=== PATIENT | female | born 1995 | race Two or more races ===

== ENCOUNTER 2022-03-03 10:06 | Outpatient (CLI) | payer OTHER | END 2022-03-03 11:20 | disposition home or self-care (01) | LOC: PRENATAL 10:06 | PROVIDERS: ATTEND Obstetrics & Gynecology Maternal & Fetal Medicine | DX: Z03.79 Encounter for other suspected maternal and fetal conditions ruled out (principal) ==

== ENCOUNTER 2022-03-31 14:48 | Outpatient (CLI) | payer OTHER | END 2022-03-31 16:00 | disposition home or self-care (01) | LOC: PRENATAL 14:48 | PROVIDERS: ATTEND Obstetrics & Gynecology Maternal & Fetal Medicine | DX: O35.0XX0 Maternal care for (suspected) central nervous system malformation in fetus, not applicable or unspecified (principal); O35.3XX0 Maternal care for (suspected) damage to fetus from viral disease in mother, not applicable or unspecified; Z3A.23 23 weeks gestation of pregnancy ==

== ENCOUNTER 2022-06-30 08:44 | Outpatient (CLI) | payer OTHER | END 2022-06-30 10:30 | disposition home or self-care (01) | LOC: PRENATAL 08:44 | PROVIDERS: ATTEND Obstetrics & Gynecology Maternal & Fetal Medicine | DX: O26.849 Uterine size-date discrepancy, unspecified trimester (principal); O36.8199 Decreased fetal movements, unspecified trimester, other fetus; O35.9XX0 Maternal care for (suspected) fetal abnormality and damage, unspecified, not applicable or unspecified; Z3A.36 36 weeks gestation of pregnancy ==

== ENCOUNTER 2022-07-15 12:36 | Inpatient (IN) | payer OTHER ==
[~2022-07-15] VITALS: Ht 167.6 cm; Wt 92.1 kg
[2022-07-15] MEDS ORDERED: PRENATAL + DHA1 EACH PO (13:38)
== END 2022-07-19 11:53 | disposition home or self-care (01) | DRG 807 ==
LOC: LDR 12:36 → OB/GYN 07-17 13:58
PROVIDERS: ADMIT Obstetrics & Gynecology; ATTEND Obstetrics & Gynecology
PROC: 4A1HXCZ Monitoring of Products of Conception, Cardiac Rate, External Approach (ICD-10-PCS; 2022-07-16)
PROC: 10E0XZZ Delivery of Products of Conception, External Approach (ICD-10-PCS; principal; 2022-07-17)
PROC: 0KQM0ZZ Repair Perineum Muscle, Open Approach (ICD-10-PCS; 2022-07-17)
DX: O70.1 Second degree perineal laceration during delivery (principal); Z37.0 Single live birth; O99.824 Streptococcus B carrier state complicating childbirth; Z3A.38 38 weeks gestation of pregnancy; Z20.822 Contact with and (suspected) exposure to COVID-19